=== PATIENT | male | born 1940 | race Caucasian/White ===

== ENCOUNTER 2019-04-05 05:19 | Inpatient (IN) | payer OTHER, MEDICAID ==
[~2019-04-05] VITALS: Ht 172.7 cm; Wt 96.0 kg
[~2019-04-05 05:19] MED LIST: AMLODIPINE10 MG PO; BENAZEPRIL HCL/1 TA1 PO; DOXAZOSIN4 MG; GLU850 PO; ZOC10 PO
--- NOTE | 2019-04-05 05:41 | NUR ---
PT BIB FAMILY FOR C/O SOB/ INABILITY TO CATCH BREATHE. PT STATES THAT HE WAS DIAGNOSED WTIH BRONCHITIS ON FRIDAY AT URGENT CARE BUT HE IS STILL FEELING SOB AND COUGHING UP WHITE PHLEGM. FAMILY STATES HE SEEMS TO BE HAVING ANXIETY ATTACKS WHEN HE FEELS LIKE HE CANT BREATHE. PT DENIES ANY CHEST PAIN BUT HAD 3+ PITTING EDEMA TO BL LOWER EXTREMETIES. FAMILY AT BEDSIDE FOR TRANSLATION. HX OF DIABETES AND HTN. PT SPEAKING IN CLEAR AND FULL SENTENCES WITH EQUAL AND UNLABORED CHEST RISE. AWAITING MSE. MD CARRERO MADE AWARE OF EDEMA AND HX. NO DISTRESS AT THIS TIME.
--- NOTE | 2019-04-05 06:04 | NUR ---
KEV FERNÁNDEZ AT BEDSIDE FOR EKG
[2019-04-05 06:08] LABS: BASOPHIL % 0.4 % (0-2); PLATELET COUNT 147 x10^3mcL (130-400)
--- NOTE | 2019-04-05 06:09 | NUR ---
X RAY AT BEDSIDE
[2019-04-05 06:10] LABS: RED CELL DISTRIBUTION WIDTH 15.4 % (11.5-14.5)
--- NOTE | 2019-04-05 06:11 | NUR ---
SING AT BEDSIDE FOR MSE
--- NOTE | 2019-04-05 06:17 | NUR ---
MD MCMAHAN MADE AWARE OF LOW 02 SAT ON ROOM AIR AND STATES TO CONTINUE O2 THERAPY NEEDED
[2019-04-05 06:49] LABS: CALCIUM 9.4 mg/dL (8.5-10.1); CHLORIDE SERUM 100 mmol/L (98-107); GLUCOSE SERUM 95 mg/dL (74-106); POTASSIUM SERUM 3.7 mmol/L (3.5-5.1); SODIUM SERUM 137 mmol/L (136-145)
[2019-04-05 06:51] LABS: ALBUMIN 3.8 g/dL (3.4-5.0); ALKALINE PHOSPHATASE 59 U/L (46-116); ALT/SGPT 21 U/L (16-63); AST/SGOT 17 U/L (15-37); BILIRUBIN TOTAL 1.34 mg/dL (0.20-1.00)
--- NOTE | 2019-04-05 07:03 | NUR ---
REPORT GIVEN TO BETTINA ESTEBAN
--- NOTE | 2019-04-05 07:04 | NUR ---
PT AWAKE ALERT AND ORIENTED. 02 BY NC. PT STATES INCREASED PHLEGM AND COUGH. BREATHING UNLABORED. PT DENIES CP. +PEDAL EDEMA. FOR APPROX 1 MO. PT ABLE TO SPEAK FULL CLEAR SENTENCES. + 02 BY NC. + CM. SON AT BEDSIDE. NO DISTRESS. CONTINUE TO MONITOR.
[2019-04-05] MEDS ORDERED: [UNRECOGNIZED DRUG - REMARK] (07:23)
--- NOTE | 2019-04-05 08:23 | NUR ---
PT SITTING AT BEDSIDE. BREATHING EVEN UNLABORED. NO DISTRESS. NO COMPLAINTS OF CP OR SOB. 02 BY NC. + CM.
--- NOTE | 2019-04-05 09:34 | NUR ---
REPORT TO BEKAH.
--- NOTE | 2019-04-05 10:28 | NUR ---
RECEIVED PATIENT FROM ER NURSE AT THIS TIME. PATIENT ABLE TO AMBULATE FROM GURNEY TO BED. NO APPARENT DISTRESS OR DISCOMFORT NOTED. ACCOMPANIED BY SON DIVYA. PATIENT ON 3 L NC AND TOLERATING WELL. CRACKLES/RHONCHI NOTED TO BILATERAL BASES. NO RESPIRATORY DISTRESS NOTED.TELE [address] AFIB[address] PULSES PALPABLE WITH WEAK PEDAL PULSES BILATERAL. 2-3+ EDEMA NOTED TO BLE. BOWEL SOUNDS ACTIVE. VOIDS FREELY WITH NO C/O BURNING/DISCOMFORT. SKIN INTACT. IV TO RIGHT WRIST PATENT AND INTACT. ALL QUESTIONS AND CONCERNS ADDRESSED. ALL NEEDS ATTENDED TO. WILL CONTINUE TO MONITOR
--- NOTE | 2019-04-05 10:30 | NUR ---
ALL MORNING MEDICATIONS ADMINISTERED AT THIS TIME. PATIENT TOLERATED WELL. NO APPARENT DISTRESS OR DISCOMFORT NOTED. NO ADVERSE EFFECTS NOTED. ALL NEEDS ATTENDED TO. WILL CONTINUE TO MONITOR
[2019-04-05] MEDS ORDERED: ASPIR 8181 MG PO (11:07)
[2019-04-05 11:08] VITALS: Ht 172.7 cm; Wt 96.0 kg
[2019-04-05 12:02] VITALS: BP 94/52
--- NOTE | 2019-04-05 13:00 | NUR ---
PATIENT SITTING UP IN BED EATING LUNCH AT THIS TIME. PATIENT TOLERATING DIET FAIRLY. NO APPARENT DISTRESS OR DISCOMFORT NOTED. ALL NEEDS ATTENDED TO. WILL CONTINUE TO MONITOR
[2019-04-05 16:30] VITALS: BP 96/59
--- NOTE | 2019-04-05 16:30 | NUR ---
PATIENT BLOOD SUGAR 115 AT THIS TIME. NO INSULIN COVERAGE REQUIRED. ALL NEEDS ATTENDED TO. WILL CONTINUE TO MONITOR
--- NOTE | 2019-04-05 18:38 | NUR ---
PATIENT RESTING COMFORTABLY IN BED AT THIS TIME. NO APPARENT DISTRESS OR DISCOMFORT NOTED. IV PATENT AND INTACT. ALL QUESTIONS AND CONCERNS ADDRESSED. ALL NEEDS ATTENDED TO. SAFETY PRECAUTIONS MAINTAINED. FAMILY MEMBERS AT BEDSIDE. WILL ENDORSE ALL CARE TO COTTON INSPECTOR NURSE
--- NOTE | 2019-04-05 19:34 | NUR ---
SHIFT REASSESSMENT DONE.PATIENT ALERT AND ORIENTED.MAKE NEEDSKNOWN,UPPER SORBIAN,LITTLE SINHALA.O2 AT 3 LITERS.AMBULATORY.HEPLOCK R WRIST TELE 28 AFIB,ON HEPARIN SQ.VOIDING.NO PAIN AT THIS TIME.CALLLIGHT IN REACH.
[2019-04-05 20:39] VITALS: BP 97/59
--- NOTE | 2019-04-05 21:48 | NUR ---
PM MEDS GIVEN.NO COUGHING NOTED AT THIS TIME.
--- NOTE | 2019-04-06 02:38 | NUR ---
SLEEPING WELL AT THIS TIME.CALL LIGHT IN REACH.
--- NOTE | 2019-04-06 05:38 | NUR ---
BLOOD SUGAR AT THIS TIME,RANDOM CHECK 67,HE SAYS IT IS GOOD,HIS SUGAR AT HOME USUALLY 62,I TOLD HIM IT IS LOW.OJ GIVEN AT THIS TIME,WITH SUGAR.WILL CHECK IN 30 MINUTES.
[2019-04-06 06:05] VITALS: BP 108/66
--- NOTE | 2019-04-06 06:07 | NUR ---
BLOOD SUGAR AFTER OJ 87.I AND O MEASURED.WILL ENDORSE TO NEXT SHIFT.
[2019-04-06 06:49] LABS: BASOPHIL % 0.5 % (0-2); PLATELET COUNT 147 x10^3mcL (130-400)
[2019-04-06 07:01] LABS: RED CELL DISTRIBUTION WIDTH 15.8 % (11.5-14.5)
[2019-04-06 07:20] VITALS: BP 95/62
--- NOTE | 2019-04-06 07:20 | NUR ---
RECEIVED PT IN BED A/A/OX4 DENIES SANTO. RESP EVEN AND UNLABORED WITH EXPIRATORY WHEEZING. PT FOUND ON RA AFTER AMBULATING TO BR. PULSE OX CHECKED WITH READING OF 95-96%. PT INSTRUCTED TO STAY OFF O2 SINCE OXYGENATION HAD INPROVED. PT INSTRUCTED TO CALL IF HE FELT SOB TO TURN O2 BACK ON. DENIES ANY CP/PRESSURE AT THIS TIME. AFIB ON TELE HR 80-90S. NOTED WITH +2-3 EDEMA TO BLE. WITH DISTANT PULSES. ON HEPARIN SQ BID, IV SL TO RW. ABD SOFT, OBESE, NONTENDER WITH ACTIVE BS X4. DENIES ANY N/V AT THIS TIME. VOIDING FREELY. CALL LIGHT IN REACH NEEDS ATTENDED TO.
[2019-04-06 07:41] LABS: ALBUMIN 3.7 g/dL (3.4-5.0); ALKALINE PHOSPHATASE 57 U/L (46-116); ALT/SGPT 20 U/L (16-63); AST/SGOT 20 U/L (15-37); BILIRUBIN TOTAL 1.22 mg/dL (0.20-1.00); CALCIUM 9.4 mg/dL (8.5-10.1); CARBON DIOXIDE 26.2 mmol/L (21-32); CHLORIDE SERUM 100 mmol/L (98-107); CREATININE SERUM 1.1 mg/dL (0.7-1.3); GLUCOSE SERUM 109 mg/dL (74-106); MAGNESIUM 1.7 mg/dL (1.8-2.4); POTASSIUM SERUM 3.2 mmol/L (3.5-5.1); SODIUM SERUM 132 mmol/L (136-145)
--- NOTE | 2019-04-06 10:26 | NUR ---
RECEIVED T.O. FROM DR. OSORIO, TO GIVE 800MG OF MAGOX PO X1 INSTEAD OF PRN MG RIDER ORDERED SINCE PT WILL BE D/C HOME TODAY.
[2019-04-06 11:00] VITALS: BP 98/60
--- NOTE | 2019-04-06 12:42 | NUR ---
PT/DAUGHTER GIVEN D/C HOME INSTRUCTIONS PROVIDED. INSTRUCTED TO TAKE NEW MEDICATIONS ORDERED. DAUGHTER MADE AWARE TO SCHEDULE AND F/U WITH [employer] SOON POSSIBLE. DAUGHTER STATED THEY HAVE APPT MID APRIL. MAD AWARE OF SCHEDULE F/U APPT WITH PCP 04/19. DAUGHTER STATED THEY HAVE BEEN THINKING OF CHANGING PCP. MADE AWARE THAT THEY SHOULD MAKE CHANGES BEFORE 04/17 SO THEY CAN GO INTO EFFECT AT THE BEGINGING OF THE MONTH. PROVIDED WITH VERBAL AND WRITTEN EDUCATION ON DM AND CHF. PT/DAUGHTER VERBALIZED UNDERSTANDING OF INSTRUCTIONS. TELE HAD BEEN D/C EARLIER IN THE DAY AND IV TO RW WAS REMOVED. CATHETER INTACT. PT TRANSPORTED TO [facility] VIA WITH ALL PERSONAL BELONINGS IN HAND FREE OF ANY APPARENT DISTRESS.
== END 2019-04-06 12:45 | disposition home or self-care (01) | DRG 291 ==
LOC: ED 05:19 → DU 09:15
PROVIDERS: Emergency Medicine; ADMIT Internal Medicine Pulmonary Disease
DX: I11.0 Hypertensive heart disease with heart failure (principal); J96.01 Acute respiratory failure with hypoxia; I50.21 Acute systolic (congestive) heart failure; L97.919 Non-pressure chronic ulcer of unspecified part of right lower leg with unspecified severity; I83.009 Varicose veins of unspecified lower extremity with ulcer of unspecified site; E11.9 Type 2 diabetes mellitus without complications; Z68.32 Body mass index [BMI] 32.0-32.9, adult; Z79.84 Long term (current) use of oral hypoglycemic drugs
CPT/HCPCS: 82962; 83880; J1644; J1940; J3475; Q0092

== ENCOUNTER 2019-04-10 06:40 | Inpatient (IN) | payer OTHER, MEDICAID ==
[~2019-04-10] VITALS: Ht 172.7 cm; Wt 90.3 kg
[~2019-04-10 06:40] MED LIST changes: +ASPIR 8181 MG PO; +DOXAZOSIN MESYLA4 MG PO; -DOXAZOSIN4 MG; +[UNRECOGNIZED DRUG - REMARK]
[2019-04-10 06:43] VITALS: Ht 172.7 cm; Wt 90.3 kg
[2019-04-10 07:27] LABS: BASOPHIL % 0.4 % (0-2); CALCIUM 9.2 mg/dL (8.5-10.1); CARBON DIOXIDE 25.6 mmol/L (21-32); CHLORIDE SERUM 97 mmol/L (98-107); CREATININE SERUM 1.3 mg/dL (0.7-1.3); GLUCOSE SERUM 123 mg/dL (74-106); PLATELET COUNT 156 x10^3mcL (130-400); POTASSIUM SERUM 3.7 mmol/L (3.5-5.1); SODIUM SERUM 133 mmol/L (136-145)
[2019-04-10 07:28] LABS: RED CELL DISTRIBUTION WIDTH 15.7 % (11.5-14.5)
[2019-04-10 07:31] LABS: ALBUMIN 3.8 g/dL (3.4-5.0); ALKALINE PHOSPHATASE 56 U/L (46-116); ALT/SGPT 25 U/L (16-63); AST/SGOT 21 U/L (15-37); BILIRUBIN TOTAL 1.6 mg/dL (0.20-1.00); TOTAL PROTEIN, SERUM 7.3 g/dL (6.4-8.2)
[2019-04-10 10:10] VITALS: BP 118/62
[2019-04-10 12:18] VITALS: BP 118/62
[2019-04-10 12:27] VITALS: BP 113/63
[2019-04-10 16:15] VITALS: BP 113/63
[2019-04-10 17:25] VITALS: BP 106/61
[2019-04-11 05:53] VITALS: BP 111/67
[2019-04-11 07:11] LABS: BASOPHIL % 0.3 % (0-2); PLATELET COUNT 154 x10^3mcL (130-400)
[2019-04-11 07:17] LABS: CALCIUM 8.6 mg/dL (8.5-10.1); CARBON DIOXIDE 29.4 mmol/L (21-32); CHLORIDE SERUM 100 mmol/L (98-107); CREATININE SERUM 1.2 mg/dL (0.7-1.3); GLUCOSE SERUM 89 mg/dL (74-106); MAGNESIUM 1.6 mg/dL (1.8-2.4); POTASSIUM SERUM 3.2 mmol/L (3.5-5.1); SODIUM SERUM 138 mmol/L (136-145)
[2019-04-11 07:21] LABS: RED CELL DISTRIBUTION WIDTH 15.5 % (11.5-14.5)
[2019-04-11 08:58] VITALS: BP 125/72
[2019-04-11 13:11] VITALS: BP 110/57
[2019-04-11 17:16] VITALS: BP 99/56
[2019-04-11 20:55] VITALS: BP 98/55
[2019-04-12 05:20] VITALS: BP 108/72
[2019-04-12 07:34] LABS: BASOPHIL % 0.3 % (0-2); PLATELET COUNT 132 x10^3mcL (130-400)
[2019-04-12 07:37] LABS: CALCIUM 8.3 mg/dL (8.5-10.1); CARBON DIOXIDE 25.7 mmol/L (21-32); CHLORIDE SERUM 103 mmol/L (98-107); GLUCOSE SERUM 78 mg/dL (74-106); MAGNESIUM 1.8 mg/dL (1.8-2.4); POTASSIUM SERUM 3.3 mmol/L (3.5-5.1); SODIUM SERUM 139 mmol/L (136-145)
[2019-04-12 09:06] LABS: RED CELL DISTRIBUTION WIDTH 15.7 % (11.5-14.5)
[2019-04-12 09:32] VITALS: BP 103/53
[2019-04-12 13:52] VITALS: BP 92/50
[2019-04-12 16:51] VITALS: BP 92/47
[2019-04-12 19:15] VITALS: BP 91/56
[2019-04-13 06:38] VITALS: BP 97/63
[2019-04-13 06:40] LABS: BASOPHIL % 0.1 % (0-2); PLATELET COUNT 135 x10^3mcL (130-400)
[2019-04-13 06:48] LABS: CALCIUM 8.8 mg/dL (8.5-10.1); CARBON DIOXIDE 27.3 mmol/L (21-32); CHLORIDE SERUM 102 mmol/L (98-107); CREATININE SERUM 1.1 mg/dL (0.7-1.3); GLUCOSE SERUM 95 mg/dL (74-106); MAGNESIUM 1.9 mg/dL (1.8-2.4); POTASSIUM SERUM 4.7 mmol/L (3.5-5.1); SODIUM SERUM 140 mmol/L (136-145)
[2019-04-13 09:34] VITALS: BP 100/65
[2019-04-13 13:02] VITALS: BP 102/66
[2019-04-13] MEDS ORDERED: DOXYCYCLINE100 M4 PO (14:02)
[2019-04-13] MEDS ORDERED: BENAZEPRIL HYDR20 M1 PO (14:03)
[2019-04-13] MEDS ORDERED: ROBDML PO (14:03)
[2019-04-13] MEDS ORDERED: TOPROL XL25 MG PO (14:03)
[2019-04-13] MEDS ORDERED: LASIX40 MG PO (14:04)
[2019-04-13] MEDS ORDERED: ELIQUIS5 MG PO (14:04)
[2019-04-13 17:01] VITALS: BP 98/61
[2019-04-13 18:10] VITALS: BP 102/60
== END 2019-04-13 20:26 | disposition home or self-care (01) | DRG 291 ==
LOC: ED 06:40 → DU 09:09
PROVIDERS: Emergency Medicine; ADMIT Internal Medicine Pulmonary Disease
DX: I11.0 Hypertensive heart disease with heart failure (principal); J96.01 Acute respiratory failure with hypoxia; J18.9 Pneumonia, unspecified organism; N17.9 Acute kidney failure, unspecified; I47.2 Ventricular tachycardia; E11.9 Type 2 diabetes mellitus without complications; I50.43 Acute on chronic combined systolic (congestive) and diastolic (congestive) heart failure; I48.91 Unspecified atrial fibrillation; E87.6 Hypokalemia; I27.20 Pulmonary hypertension, unspecified; I34.0 Nonrheumatic mitral (valve) insufficiency; E83.42 Hypomagnesemia; I25.2 Old myocardial infarction; Z79.4 Long term (current) use of insulin; Z99.81 Dependence on supplemental oxygen; Z68.30 Body mass index [BMI] 30.0-30.9, adult; Z79.84 Long term (current) use of oral hypoglycemic drugs
CPT/HCPCS: 82962; 83880; 90732; 94150; J0696; J1644; J1940; J3475; J3490; Q0092

== ENCOUNTER 2019-06-07 01:22 | Inpatient (IN) | payer OTHER, MEDICAID ==
[~2019-06-07] VITALS: Ht 170.2 cm; Wt 82.0 kg
[~2019-06-07 01:22] MED LIST changes: +BENAZEPRIL HYDR20 M1 PO; +DOXYCYCLINE100 M4 PO; +ELIQUIS5 MG PO; +LASIX40 MG PO; +ROBDML PO; +TOPROL XL25 MG PO
--- NOTE | 2019-06-07 01:22 | NUR ---
UNABLE TO OBTAIN RECTAL TEMPERATURE AT THIS TIME, CPR IN PROGRESS
--- NOTE | 2019-06-07 01:22 | NUR ---
PT BIB AMBULANCE FOR FULL ARREST. PER SUPPLY CHAIN BUSINESS ANALYST PT WAS "AT HOME DRINKING SITTING ON THE COUGH" WHEN HE "STARTED HAVE ANXIETY AND THEN WENT INTO RESPIRATORY DEPRESSION. WHEN WE GOT ON SCENE HE HAD AGONAL RESPIRATIONS AND WAS ROMERO. THEN HE HAD NO PULSE SO WE STARTED CPR". PER SUPPLY CHAIN BUSINESS ANALYST CPR INITIATED BUILDING CONSTRUCTION TEACHER AT 0102 WITH 3 ROUNDS OF EPI GIVEN BUILDING CONSTRUCTION TEACHER. PT ARRIVED TO ED WITH CPR IN PROGRESS RECIEVING 02 VIA ET TUBE AND BVM. PER MEDIC PT INTUBATED AT 0120 SIZE 7.0 AT 23 CM. AJAY EMT, DR HICKS, RNS JIHAN, ABUNDIO, CAIO, MYSELF, RTS KEV SHEPHERD AT BEDSIDE. UPON ARRIVAL TO ED PT WAS NO SPONTANEOUSLY BREATHING AND HAD NO PULSE. CPR REMAINS IN PROGRESS. PT HOOKED UP TO CM, DEFIB, O2 MONITOR. PT SHOWS ASYSTOLE ON MONITOR. PT NOW RECIEVING 02 VIA BVM AT 12 L. CAIO RN AND JIHAN RN ATTEMPTING IV PLACEMENT. PT HAS IO NOTED TO R LEG. PUPILS ARE FIXED AT 4 MM BILATERALLY.
--- NOTE | 2019-06-07 01:26 | NUR ---
PULSE CHECK, NO PULSES. PT SHOWS ASYSTOLE ON MONITOR. RESUMING COMPRESSIONS.
--- NOTE | 2019-06-07 01:28 | NUR ---
PER DR HICKS HOLD CPR TO CHECK ET TUBE FOR POSSIBLE COMPLICATIONS. DR HICKS USED LARYNOSCOPE TO CHECK PLACEMENT. PER DR HICKS RESUME COMPRESSIONS AT THIS TIME.
--- NOTE | 2019-06-07 01:30 | NUR ---
PER DR HICKS, HOLD COMPRESSIONS. ET TUBE NOT IN DESIRED POSITION. ET TUBE REMOVED AT THIS TIME. PULSE CHECK, NO PULSES. PT ASYSTOLE ON MONITOR. RESUME COMPRESSIONS AT THIS TIME.
--- NOTE | 2019-06-07 01:32 | NUR ---
HOLD CPR, PULSE CHECK. ASYSTOLE ON MONITOR. PT INTUBATED AT THIS TIME. ET TUBE NOTED AT 25 SIZE 7.5, 1 ATTEMPT. ET TUBE SECURED. LUNG SOUNDS CLEAR. PT RECIEVING 15 L O2 VIA BVM. RT AT BEDSIDE SUCTIONING PT. CPR RESUMED.
--- NOTE | 2019-06-07 01:35 | NUR ---
HOLD CPR, PULSE CHECK. NO PULSES, ASYSTOLE ON MONITOR. CPR RESUMED.
--- NOTE | 2019-06-07 01:40 | NUR ---
HOLD CPR, PULSE CHECK. PALPABLE PULSES NOTED. IRREGULAR HR NOTED ON MONITOR AT 37. PT STILL NOT BREATHING SPONTANEOUSLY AND REMAINS ON BVM AT 15 L. SEE CODE BLUE SHEET FOR ADDITIONAL INFORMATION.
--- NOTE | 2019-06-07 01:42 | NUR ---
PULSES NO LONGER PALPABLE. ASYSTOLE ON MONITOR. CPR INITIATED BY AJAY MIGUEL. PT STILL RECIEVING 15 L O2 BVM VIA ET TUBE.
--- NOTE | 2019-06-07 01:44 | NUR ---
HOLD CPR, PULSE CHECK. PALPABLE PULSES NOTED AT THIS TIME. PT BEGAN SPONTANEOUSLY BREATHING AT THIS TIME. BREATHING PATTERN IN NOTED IRREGULAR. HR NOTED IRREGULAR ON MONITOR AT 42.
--- NOTE | 2019-06-07 01:45 | NUR ---
CALCIUM CHLORIDE GIVEN
--- NOTE | 2019-06-07 01:49 | NUR ---
CALCIUM CHLORIDE GIVEN
--- NOTE | 2019-06-07 01:50 | NUR ---
MULTIPLE UNSUCCESSFUL IV ATTEMPTS BY CAIO ESTEBAN, JIHAN ESTEBAN, AND ABUNDIO ESTEBAN
--- NOTE | 2019-06-07 01:54 | NUR ---
PT PLACED ON VENTAT THIS TIME, RATE 16, TIDAL VOLUME 550, FIO2 100, PEEP 5. PT TOLERATING WELL.
--- NOTE | 2019-06-07 01:58 | NUR ---
IV ACCESS INITIATED BY ABUNDIO ESTEBAN TO R WRIST 20 G, IV PATENT AND FLUSHES WITH NO COMPLICATIONS.
[2019-06-07 01:59] VITALS: Ht 170.2 cm; Wt 82.0 kg
--- NOTE | 2019-06-07 02:05 | NUR ---
PTS RECTAL TEMP NOTED AT 95.7. DR HICKS MADE AWARE. WARMING MEASURES INTIATED. WARM BLANKETS PLACED ON PT.
--- NOTE | 2019-06-07 02:07 | NUR ---
XRAY AT BEDSIDE FOR VERIFY ET TUBE PLACEMENT. PER XRAY ET TUBE NEEDS TO BE MOVED TO 23 CM. ET TUBE PLACED AT 23 BY RT CORA AND SECURED.
--- NOTE | 2019-06-07 02:07 | NUR ---
RETRACTED ET TUBE 2CM PER REQUEST POST XRAY. FROM 25CM AT THE LIP TO 23CM AT THE LIP.
--- NOTE | 2019-06-07 02:31 | NUR ---
DECREASED FIO2 FROM 100% TO 60% PER REQUEST POST ABG RESULTS.
[2019-06-07 02:34] LABS: BASOPHIL % 0.3 % (0-2); PLATELET COUNT 173 x10^3mcL (130-400)
[2019-06-07 02:36] LABS: RED CELL DISTRIBUTION WIDTH 18.9 % (11.5-14.5)
[2019-06-07 02:37] LABS: ALKALINE PHOSPHATASE 69 U/L (46-116); ALT/SGPT 227 U/L (16-63); AST/SGOT 246 U/L (15-37); BILIRUBIN TOTAL 2.05 mg/dL (0.20-1.00); CALCIUM 10.5 mg/dL (8.5-10.1); CARBON DIOXIDE 15.1 mmol/L (21-32); CHLORIDE SERUM 95 mmol/L (98-107); CREATININE SERUM 3.3 mg/dL (0.7-1.3); GLUCOSE SERUM 93 mg/dL (74-106); POTASSIUM SERUM 5.1 mmol/L (3.5-5.1); SODIUM SERUM 130 mmol/L (136-145)
[2019-06-07 02:38] LABS: ALBUMIN 2.5 g/dL (3.4-5.0); TOTAL PROTEIN, SERUM 5.5 g/dL (6.4-8.2)
--- NOTE | 2019-06-07 02:50 | NUR ---
[facility] WARMING BLANK[facility] SET UP AT BEDSIDE.
--- NOTE | 2019-06-07 03:01 | NUR ---
PT NOTED MOVING UPPER EXTREMITIES TO TACTILE STIMULI. PER DR HICKS PUT SOFT RESTRAINTS ON BILATERAL WRISTS FOR PT SAFETY POST INTUBATION
--- NOTE | 2019-06-07 03:06 | NUR ---
PER MD YUSUF CONTINUE WITH HYPOTHERMIC/ WARMING MEASURES/PROTOCOL FOR HYPOTHERMIA (SEE VITALS). BEKA ESTEBAN AWARE. PAULIE ESTEBAN RETRIEVING GAYMAR TO PLACE PT UNDER WARMING MEASURES
--- NOTE | 2019-06-07 03:14 | NUR ---
UPDATED FAMILY ON PT STATUS AND THAT HE WILL BE GOING TO THE ICU SHORTLY. FAMILY MADE AWARE THEY WILL BE ALLOWED TO SEE HIM SOON THE NURSE IS DONE WITH ALL OF THE PROCEDURES AND HAVE HIM SETTLED. FAMILY AWARE AND OKAY. FAMILY WAITING IN QUIET ROOM. NO FURTHER QUESTIONS AT THIS TIME
--- NOTE | 2019-06-07 03:22 | NUR ---
PER DR HICKS START DOPAMINE AT 5 MCG/KG/MIN TO KEEP PTS MAP ABOVE 65. DOPAMINE INITIATED AT THIS TIME.
--- NOTE | 2019-06-07 03:35 | NUR ---
PT FAMILY TAKEN TO BEDSIDE AT THIS TIME.
--- NOTE | 2019-06-07 03:45 | NUR ---
REPORT CALLED TO DAVID ESTEBAN IN ICU.
[2019-06-07] MEDS ORDERED: KLOR-CON M2020 MEQ PO (03:49)
[2019-06-07] MEDS ORDERED: ALPRAZOLAM0.25 MG PO (03:49)
--- NOTE | 2019-06-07 04:05 | NUR ---
RECEIVED REPORT FROM CARLITO PLATA. PT IS INTUBATED AND RESPONSIVE TO TACTILE STIMULUS. PT IS ON NO SEDATION AT THIS TIME. DOES NOT FOLLOW COMMANDS. PT IS BREATHING E/U ON VENT. SETTINGS INCLUDE RATE: 16, TV: 550, O2: 60%, PEEP: 5. LUNG SOUNDS CLEAR TO BILATERAL UPPER LOBES, DIMINSHED TO BILATERAL LOWER LOBES. S1 S2 HEART SOUNDS AUSCULTATED. DOPAMINE INFUSING AT 1.5 MCG/KG/MIN. PULSES MODERATE X4. CAP REFILL <3 SECONDS X4. SKIN IS WARM AND CONSISTENT WITH ETHNICITY. PERIPHERAL IV TO RIGHT WRIST, AND RIGHT IO INTACT. TRACE PITTING EDEMA TO BLE. ABD IS SOFT AND ROUNDED WITH ACTIVE BOWEL SOUNDS X4Q. GIMENEZ DRAINING VIA GRAVITY. NO URINE OUTPUT AT THIS TIME. WILL CONTINUE TO MONITOR.
--- NOTE | 2019-06-07 04:05 | NUR ---
PT TRANSFERED TO ICU BED 3 AT THIS TIME VIA NELLY ACCOMPANIED BY MYSELF RN, AJAY EMT, AND CORA RT. PT IS RESPONSIVE TO DEEP TACTILE STIMULI. PT REMAINS ON VENTILATOR VIA ET TUBE. WARMING BLANKET IN PLACE. TRANSPORT CM IN PLACE. SHOWROOM SALES ASSISTANT DAVID AT BEDSIDE TO ASSUME CARE OF PT. PT TOLERATED TRANSPORT WELL. SOFT RESTRAINTS IN PLACE.
--- NOTE | 2019-06-07 04:05 | NUR ---
TRANSFERED PATIENT ON VENT FROM ER TO ICU BED 3 WITH NO INCIDENT.
[2019-06-07 04:54] VITALS: BP 103/39
[2019-06-07 06:07] VITALS: BP 108/52
--- NOTE | 2019-06-07 06:37 | NUR ---
CALLED DR. YUSUF FOR ADMISSION ORDERS. ORDERED AM LABS, AND DR. KATHERINE OSORIO WILL BE THE ATTENDING. DID NOT WANT TO ORDER MEDICATIONS OR SEDATION UNTIL THE PATIENT IS SEEN. WILL PLACE IN ORDERS. ALL QUESTIONS AND CONCERNS ANSWERED.
--- NOTE | 2019-06-07 06:38 | NUR ---
ON ADMISSION, PT WAS 97.0 DEGREES. UPON CHECKING IT NOW, PT TEMP WAS 96.3. WARMING BLANKET PLACED ON PATIENT. WILL CONTINUE TO MONITOR.
[2019-06-07 07:30] VITALS: BP 112/49
--- NOTE | 2019-06-07 07:30 | NUR ---
RECIEVED REPORT FROM DAIVD ESTEBAN. ALL QUESTIONS ANSWERED AND ADDRESSED. RECIEVED PT INTUBATED WITH NO SEDATION. UNABLE TO FOLLOW COMMANDS. OBTUNDED. PUPILS 6MM IN SIZE AND SLUGGISH IN RESPONSE TO LIGHT. 7.5 ETT @ 23 LL. OGT INTACT AND SECURED. NO GAG REFLEX PRESENT. TRACHEA MIDLINE. NO JVD PRESENT. ETT TO VENT: VCV/AC MODE - 16 RATE, 550 VT, 60% FIO2, 5 PEEP. BREATHING IS LABORED AND AGONAL. TACHYPNEA NOTED. NO FLAIL CHEST. WEAK PULSES X4. +1 PITTING EDEMA TO BLE. PIV TO R WRIST INTACT, PORT PATENT, DRESSINGCDI. IO TO R MORIN INTACT, PORT PATENT. DOPAMINE INFUSING @ 5MCG/KG/MIN. ABD IS SOFT AND FLAT. NO S/S OF N/V OR ABD PAIN. F/C INTACT AND DRAINING VIA GRAVITY, NO DEPENDENT LOOPS NOTED. ANURIC. NO OUTPUT. PENILE BLEEDING NOTED, NO SCROTAL EDEMA NOTED. B/E SOFT WRIST RESTRAINTS APPLIED. JOINTS INTACT. NO CONTRACTURES NOTED. X3 SIDE RAILS UP, BED IN LOWEST POSITION, HOB 30 DEGREES.
[2019-06-07 07:52] VITALS: BP 112/49
--- NOTE | 2019-06-07 08:05 | NUR ---
PT'S HR OF 40. TITRATED DOPAMINE TO 6MCG/MIN TO ACHIEVE HR >60.
--- NOTE | 2019-06-07 08:13 | NUR ---
RESTRAINTS TAKEN OFF AT THIS TIME D/T PT'S HR DROPPING TO 40'S.
--- NOTE | 2019-06-07 08:15 | NUR ---
PT'S HR = 45. TITRATED DOPAMINETO 7 MCG/KG/MIN.
--- NOTE | 2019-06-07 08:20 | NUR ---
PT HR = 45. GIVEN ATROPINE 0.1MG/ML.
--- NOTE | 2019-06-07 08:20 | NUR ---
ATTENDING PHYSICIAN ([facility]) PAGED AT THIS TIME DUE TO PT'S CHANGE OF RHYTHM AND LOW HR.
--- NOTE | 2019-06-07 08:30 | NUR ---
PT'S HR OF 43. TITRATED DOPAMINE TO 8 MCG/KG/MIN.
--- NOTE | 2019-06-07 08:40 | NUR ---
PT'S HR OF 43. TITRATED DOPAMINETO 9 MCG/KG/MIN.
--- NOTE | 2019-06-07 09:08 | NUR ---
DR. OSORIO AT BEDSIDE ASSESSING PT AND TALKING TO DAUGHTER AT BEDSIDE REGARDING PT'S STATUS AND PLAN OF CARE OF PT.
--- NOTE | 2019-06-07 09:17 | NUR ---
NO HR NOTED ON MONITOR, PT'S DAUGHTER AT BEDSIDE. RN INTO ROOM AND ASKED PT'S DAUGHTER BETH "DO YOU WANT ME TO DO CPR?" PER PT'S DAUGHTER BETH NO CPR. PULSE ASSESSED VIA DOPPLER AND NOTED. HR 33 ON SOLE ROUNDING MACHINE OPERATOR. PER PT'S DAUGHTER BETH SHE IS WAITING FOR FAMILY.
--- NOTE | 2019-06-07 09:24 | NUR ---
PT NOTED ASYTOLE ON MONITOR. RN AT BEDSIDE TO ASSESS VIA DOPPLER NO HR PRESENT. DR. OSORIO IN UNIT AND MADE AWARE. PT'S DAUGHTER BETH REMAINS AT BEDSIDE. PT PRONOUNCED AT THIS TIME BY DR. OSORIO . PRIMARY RN AWARE.
[2019-06-07 09:31] LABS: PLATELET COUNT 211 x10^3mcL (130-400)
[2019-06-07 09:37] LABS: RED CELL DISTRIBUTION WIDTH 18.2 % (11.5-14.5)
--- NOTE | 2019-06-07 09:40 | NUR ---
PRODUCT RESPONSIBILITY LIAISON CALLED AT THIS TIME AND INFORMATION GIVEN. WAITING MULTI PUNCH OPERATOR BACK
--- NOTE | 2019-06-07 09:50 | NUR ---
[facility] CALLED AT THIS TIME. INFORMATION GIVEN TO IDALMIS. CASE #: [id number].
[2019-06-07 09:52] LABS: CREATININE SERUM 3.3 mg/dL (0.7-1.3); GLUCOSE SERUM 87 mg/dL (74-106); MAGNESIUM 2.5 mg/dL (1.8-2.4); PHOSPHOROUS 8.1 mg/dL (2.5-4.9)
[2019-06-07 10:02] LABS: CHLORIDE SERUM 91 mmol/L (98-107); SODIUM SERUM 128 mmol/L (136-145)
[2019-06-07 10:16] LABS: CARBON DIOXIDE 7.6 mmol/L (21-32); POTASSIUM SERUM 6.1 mmol/L (3.5-5.1)
[2019-06-07 10:31] LABS: BAND NEUTROPHIL 1 % (0-10); BASOPHIL 0 % (0-2); SEGMENTED NEUTROPHILS 96 % (37-75)
[2019-06-07 10:32] LABS: acanthocyte (spur cell) 2+; rbc morphology (normal/abnorm) ABNORMAL (NORMAL)
[2019-06-07 10:34] LABS: PLATELET MORPHOLOGY PLATELETS DECREASED; ovalocyte/elliptocyte 1+
--- NOTE | 2019-06-07 10:52 | NUR ---
RENITA STANFORD (RICKSHAW DRIVER) CALLED BACK AT THIS TIME. INFORMATION GIVEN. STATED THAT SHE NEEDS THE ER FORM FROM WHERE THE PT CAME FROM IN ORDER TO MOVE FORWARD WITH THE CASE.
--- NOTE | 2019-06-07 11:16 | NUR ---
RENITA STANFORD (CLINICAL ACCOUNT EXECUTIVE) RELEASED BODY. CLINICAL ACCOUNT EXECUTIVE'S CASE #: [id number]
--- NOTE | 2019-06-07 11:54 | NUR ---
[facility] CALLED BACK AND STATED THAT PT IS ELIGIBLE FOR MULTIPLE DONATIONS. STATED THAT THEY WILL CALL BACK IN AN HOUR FOR UPDATES
== END 2019-06-07 15:34 | disposition expired | DRG 208 ==
LOC: ED 01:22 → IC 03:06
PROVIDERS: Emergency Medicine; ADMIT Internal Medicine Nephrology
PROC: 5A1935Z Respiratory Ventilation, Less than 24 Consecutive Hours (ICD-10-PCS; principal; 2019-06-07)
PROC: 0BH17EZ Insertion of Endotracheal Airway into Trachea, Via Natural or Artificial Opening (ICD-10-PCS; 2019-06-07)
DX: J96.01 Acute respiratory failure with hypoxia (principal); N17.0 Acute kidney failure with tubular necrosis; G93.1 Anoxic brain damage, not elsewhere classified; R57.0 Cardiogenic shock; E11.9 Type 2 diabetes mellitus without complications; I10 Essential (primary) hypertension; Z66 Do not resuscitate; Z68.26 Body mass index [BMI] 26.0-26.9, adult; Z79.84 Long term (current) use of oral hypoglycemic drugs
CPT/HCPCS: 36600; 83880; G0378; J0171; J1265; J3490; Q0092